=== PATIENT | male | born 1970 | race Caucasian/White ===

== ENCOUNTER 2017-09-05 19:41 | Emergency (ER) | payer OTHER ==
[2017-09-05] MEDS: KETOROLAC 15 MG INJ IM (20:13)
== END 2017-09-06 00:03 | disposition home or self-care (01) ==
LOC: E/R 09-06 00:03
DX: M54.9 Dorsalgia, unspecified (principal); F15.10 Other stimulant abuse, uncomplicated; F17.210 Nicotine dependence, cigarettes, uncomplicated
CPT/HCPCS: 96372; 99284-25

== ENCOUNTER 2018-06-04 00:46 | Inpatient (IN) | payer OTHER ==
[2018-06-04 03:32] LABS: ADD MAN DIFF? NO
[2018-06-04] MEDS: SODIUM CHLORIDE 0.9% 1L BAG IV* (03:34)
[2018-06-04] MEDS: PIPER-TAZO 3.375 GM IV (PMX) 100 ML IVPB ×5 (03:35→23:23)
[2018-06-04 03:52] LABS: ALANINE AMINOTRANSFERASE 41 IU/L (13-69); ALBUMIN 3.3 g/dl (3.3-4.9); ALKALINE PHOSPHATASE 54 IU/L (42-121); ANION GAP 12 (5-13); ASPARTATE AMINO TRANSFERASE 34 IU/L (15-46); BILIRUBIN,INDIRECT 0.5 mg/dl (0-1.1); BILIRUBIN,TOTAL 0.5 mg/dl (0.2-1.3); BLOOD UREA NITROGEN 14 mg/dl (7-20); CALCIUM 8.3 mg/dl (8.4-10.2); CARBON DIOXIDE 25 mmol/L (21-31); CHLORIDE 101 mmol/L (97-110); CREATININE 0.58 mg/dl (0.61-1.24); Estimated GFR > 60 mL/min (>60); GLUCOSE 131 mg/dl (70-220); POTASSIUM 3.2 mmol/L (3.5-5.1); SODIUM 138 mmol/L (135-144); TOTAL PROTEIN 6.3 g/dl (6.1-8.1)
[2018-06-04 03:53] LABS: INR 0.96; PROTIME 12.9 Sec (11.9-14.9)
[2018-06-04 03:56] LABS: PARTIAL THROMBOPLASTIN TIME 31.4 Sec (23.0-35.0)
[2018-06-04 04:02] LABS: ABNORMAL IP MESSAGE 1; BASOPHILS % 0.3 % (0.0-2.0); EOSINOPHILS % 0.2 % (0.0-7.0); HEMATOCRIT 37.4 % (42.0-52.0); HEMOGLOBIN 12.6 g/dl (14.0-18.0); LYMPHOCYTES # 1.7 10^3/ul (0.8-2.9); LYMPHOCYTES % 12.8 % (15.0-51.0); MEAN CORPUSCULAR HGB CONC 33.7 g/dl (32.0-37.0); MEAN CORPUSCULAR VOLUME 86.2 fl (82.0-101.0); MEAN PLATELET VOLUME 8.8 fl (7.4-10.4); MONOCYTE # 1.7 10^3/ul (0.3-0.9); MONOCYTES % 13.3 % (0.0-11.0); NEUTROPHIL # 9.5 10^3/ul (1.6-7.5); PLATELET COUNT 278 10^3/UL (140-415); POSITIVE DIFF @See below; RED BLOOD COUNT 4.34 10^6/ul (4.70-6.10); RED CELL DISTRIBUTION WIDTH 13.1 % (11.5-14.5)
[2018-06-04 04:02] LABS: WHITE BLOOD COUNT 13.1 10^3/ul (4.8-10.8)
[2018-06-04 04:03] LABS: TROPONIN-I < 0.012 ng/ml (0.000-0.120)
[2018-06-04] MEDS ORDERED: ONDANSETRON 4 MG INJ IV (04:30)
[2018-06-04] MEDS ORDERED: VANCOMYCIN IV PER PHARMACY XX (04:30)
[2018-06-04] MEDS ORDERED: HYDROCODONE/APAP (5/325) TAB PO (04:30)
[2018-06-04] MEDS ORDERED: DOCUSATE SODIUM 100 MG CAP PO (04:30)
[2018-06-04] MEDS ORDERED: NACL 0.9% 3 ML SYG IV (04:30)
[2018-06-04] MEDS ORDERED: BISACODYL (EC) 5 MG TAB PO (04:30)
[2018-06-04] MEDS ORDERED: ACETAMINOPHEN 325 MG TAB PO (04:30)
[2018-06-04] MEDS: VANCOMYCIN 1 GM (PMX) 250 ML IVPB (04:31)
[2018-06-04] MEDS: POTASSIUM CHLORIDE (SR) 20 MEQ TAB PO (04:31)
[2018-06-04 04:58] LABS: ADD UMIC NO; UR ASCORBIC ACID NEGATIVE (NEGATIVE); UR BILIRUBIN (Dip) NEGATIVE (NEGATIVE); UR BLOOD (Dip) NEGATIVE (NEGATIVE); UR CLARITY CLEAR (CLEAR); UR COLOR YELLOW (YELLOW); UR GLUCOSE (Dip) NEGATIVE (NEGATIVE); UR KETONES (Dip) TRACE mg/dL (NEGATIVE); UR LEUKOCYTE ESTERASE (Dip) NEGATIVE Leu/ul (NEGATIVE); UR NITRITE (Dip) NEGATIVE (NEGATIVE); UR SPECIFIC GRAVITY (Dip) 1.015 (1.003-1.030); UR TOTAL PROTEIN (Dip) NEGATIVE (NEGATIVE); UR UROBILINOGEN (Dip) 2+ mg/dL (NEGATIVE)
[2018-06-04 05:12] LABS: BARBITURATES Negative (NEGATIVE); BENZODIAZEPINES Negative (NEGATIVE); CANNABINOIDS Positive (NEGATIVE); COCAINE Negative (NEGATIVE); OPIATES Negative (NEGATIVE)
[2018-06-04 05:25] LABS: AMPHETAMINE/METHAMPHETAMINE POSITIVE (NEGATIVE)
[2018-06-04 07:44] LABS: LACTIC ACID 0.9 mmol/L (0.5-2.0)
[2018-06-04] MEDS: VANCOMYCIN 1 GM 250 ML IVPB ×2 (15:00→20:40)
[2018-06-05] MEDS: VANCOMYCIN 1 GM 250 ML IVPB (04:06)
[2018-06-05] MEDS: PIPER-TAZO 3.375 GM IV (PMX) 100 ML IVPB ×2 (05:21→11:52)
[2018-06-05 06:31] LABS: ADD MAN DIFF? NO
[2018-06-05 06:35] LABS: BASOPHILS % 0.6 % (0.0-2.0); EOSINOPHILS # 0.1 10^3/ul (0.0-0.5); HEMATOCRIT 38.6 % (42.0-52.0); HEMOGLOBIN 12.9 g/dl (14.0-18.0); LYMPHOCYTES # 1.5 10^3/ul (0.8-2.9); LYMPHOCYTES % 21.2 % (15.0-51.0); MEAN CORPUSCULAR HEMOGLOBIN 29.3 pg (29.0-33.0); MEAN CORPUSCULAR HGB CONC 33.4 g/dl (32.0-37.0); MEAN CORPUSCULAR VOLUME 87.5 fl (82.0-101.0); MEAN PLATELET VOLUME 8.8 fl (7.4-10.4); MONOCYTE # 0.7 10^3/ul (0.3-0.9); MONOCYTES % 10.6 % (0.0-11.0); NEUTROPHIL # 4.6 10^3/ul (1.6-7.5); NEUTROPHILS % 66.2 % (39.0-77.0); PLATELET COUNT 299 10^3/UL (140-415); RED BLOOD COUNT 4.41 10^6/ul (4.70-6.10); RED CELL DISTRIBUTION WIDTH 13.5 % (11.5-14.5)
[2018-06-05 06:35] LABS: WHITE BLOOD COUNT 6.9 10^3/ul (4.8-10.8)
[2018-06-05 07:04] LABS: HEMOGLOBIN A1C 5.3 % (0-5.9)
[2018-06-05 07:22] LABS: ALANINE AMINOTRANSFERASE 37 IU/L (13-69); ALBUMIN 2.8 g/dl (3.3-4.9); ALBUMIN/GLOBULIN RATIO 1.03; ALKALINE PHOSPHATASE 45 IU/L (42-121); ANION GAP 9 (5-13); ASPARTATE AMINO TRANSFERASE 32 IU/L (15-46); BILIRUBIN,INDIRECT 0.1 mg/dl (0-1.1); BILIRUBIN,TOTAL 0.1 mg/dl (0.2-1.3); BLOOD UREA NITROGEN 9 mg/dl (7-20); CALCIUM 8.1 mg/dl (8.4-10.2); CARBON DIOXIDE 26 mmol/L (21-31); CHLORIDE 106 mmol/L (97-110); CHOL/HDL RATIO 3.9 RATIO; CHOLESTEROL 95 mg/dl (100-200); CREATININE 0.53 mg/dl (0.61-1.24); Estimated GFR > 60 mL/min (>60); GLUCOSE 133 mg/dl (70-220); HDL CHOLESTEROL 24 mg/dl (27-67); LDL CHOLESTEROL,CALCULATED 58 mg/dl; POTASSIUM 3.7 mmol/L (3.5-5.1); SODIUM 141 mmol/L (135-144); TOTAL PROTEIN 5.5 g/dl (6.1-8.1); TRIGLYCERIDES 67 mg/dl (0-149)
[2018-06-05 12:12] LABS: VANCOMYCIN,TROUGH 6.3 ug/ml (10.0-20.0)
[2018-06-05] MEDS ORDERED: TRIMETHOPRIM/SULFAMETHOX (DS) TAB PO (15:00)
== END 2018-06-05 14:24 | disposition left against medical advice (07) | DRG 872 ==
LOC: E/R 00:46 → 5EC 04:25
PROC: 0H9BXZZ Drainage of Right Upper Arm Skin, External Approach (ICD-10-PCS; principal; 2018-06-04)
DX: A41.9 Sepsis, unspecified organism (principal); L03.113 Cellulitis of right upper limb; L02.413 Cutaneous abscess of right upper limb; J98.2 Interstitial emphysema; F20.9 Schizophrenia, unspecified; B95.0 Streptococcus, group A, as the cause of diseases classified elsewhere; E87.6 Hypokalemia; E86.0 Dehydration; D64.9 Anemia, unspecified; F17.210 Nicotine dependence, cigarettes, uncomplicated; B18.2 Chronic viral hepatitis C; F31.9 Bipolar disorder, unspecified; M54.9 Dorsalgia, unspecified; L40.9 Psoriasis, unspecified; F11.90 Opioid use, unspecified, uncomplicated; F12.90 Cannabis use, unspecified, uncomplicated; F15.90 Other stimulant use, unspecified, uncomplicated; Z59.0 Homelessness
CPT/HCPCS: 36415; 71045; 73090-RT; 76536; 80053; 80061; 80202; 80307; 81003; 83036; 83605; 83735; 84443; 84484; 85025; 85610; 85730; 87040; 87070; 87086; 93005; 93971; 96365; 99285-25